=== PATIENT | female | born 1955 | race Caucasian/White ===

== ENCOUNTER 2021-04-22 16:54 | Emergency (ER) | payer SELFPAY ==
[~2021-04-22] VITALS: Ht 180.3 cm; Wt 118.2 kg
[2021-04-22 16:57] VITALS: BP 125/70
== END 2021-04-22 20:16 | disposition left against medical advice (07) ==
LOC: ER 16:55
DX: S60.562A Insect bite (nonvenomous) of left hand, initial encounter (principal); Z53.21 Procedure and treatment not carried out due to patient leaving prior to being seen by health care provider; W57.XXXA Bitten or stung by nonvenomous insect and other nonvenomous arthropods, initial encounter; Y93.89 Activity, other specified; Y92.89 Other specified places as the place of occurrence of the external cause; Y99.8 Other external cause status